=== PATIENT | female | born 1965 | race Caucasian/White ===

== ENCOUNTER 2017-11-24 13:02 | Emergency (ER) | payer OTHER ==
[2017-11-24] MEDS ORDERED: HYDROmorphONE/DILAUDID 1 MG/ML INJ IVP ONE (13:44)
[2017-11-24] MEDS ORDERED: NS 1,000 ML IV ONE (13:44)
[2017-11-24 14:04] LABS: PLATELET COUNT 310 10^3/uL (150-400)
[2017-11-24 14:15] VITALS: RESP 16
--- NOTE | 2017-11-24 14:51 | EDPHY ---
H & P Stated Complaint: fall off horse/groin pain r hand/finger inj Time Seen by Provider: 11/24/17 13:39 HPI/ROS: CHIEF COMPLAINT: Right groin and hand pain HISTORY OF PRESENT ILLNESS: The patient presents the ED with complaints of right groin hand pain after she fell off a horse earlier today. The patient denies headache, neck pain, chest pain or difficulty breathing. The patient denies any anticoagulant use. The patient denies any numbness or weakness. She reports moderate pain in his been unable to weightbear. REVIEW OF SYSTEMS: A comprehensive 10 point review of systems is otherwise negative aside from elements mentioned in the history of present illness. Source: Patient Exam Limitations: No limitations - Personal History LMP (Females 10-55): Post Menopausal Current Tetanus/Diphtheria Vaccine: No - Medical/Surgical History Hx Asthma: No Hx Chronic Respiratory Disease: No Hx Diabetes: No Hx Cardiac Disease: No Hx Renal Disease: No Hx Cirrhosis: No Hx Alcoholism: No Hx HIV/AIDS: No Hx Splenectomy or Spleen Trauma: No Other PMH: denies - Social History Smoking Status: Never smoked - Physical Exam Exam: General Appearance: Alert, no distress Head: Atraumatic Eyes: Pupils equal, round, reactive ENT, Mouth: No hemotympanum, no oral trauma Neck: Nontender, trachea midline Respiratory: No chest wall tender, subcutaneous air, lungs clear bilaterally Cardiovascular: Regular rate and rhythm Abdomen: Abdomen is soft and nontender, pelvis stable Skin: No lacerations, No abrasion Back: No midline T/L/S pain Extremities: Tenderness to palpation right inguinal area, tenderness to palpation right 4th finger distal phalanx without deformity Neurological: A&Ox3, normal motor function, normal sensory exam Constitutional: Initial Vital Signs Temperature (C) 36.5 C 11/24/17 13:16 Heart Rate 74 11/24/17 13:16 Respiratory Rate 18 11/24/17 13:16 Blood Pressure 123/87 H 11/24/17 13:16 O2 Sat (%) 98 11/24/17 13:16 O2 Delivery Mode Room Air Allergies/Adverse Reactions: No Known Allergies Allergy (Unverified 11/24/17 13:16) Home Medications: Medication Instructions Recorded NK [No Known Home Meds] 11/24/17 Medical Decision Making - Diagnostics Imaging Results: Imaging Impressions Hand X-Ray 11/24/17 13:44 Impression: Comminuted fracture of the distal phalanx. 2. AP Pelvis, 2 images History: Pain in right hip. Bucked off horse today. Findings: There is a slightly impacted fracture of the central aspect of the right superior pubic ramus/symphysis. The pubic symphysis is minimally malalignment. Hips and SI joints look normal. Impression: Right superior pubic ramus/pubic fractures. Pelvis X-Ray 11/24/17 13:44 Impression: Comminuted fracture of the distal phalanx. 2. AP Pelvis, 2 images History: Pain in right hip. Bucked off horse today. Findings: There is a slightly impacted fracture of the central aspect of the right superior pubic ramus/symphysis. The pubic symphysis is minimally malalignment. Hips and SI joints look normal. Impression: Right superior pubic ramus/pubic fractures. ED Course/Re-evaluation: The patient presents to the ED for evaluation of right hip in hand pain following a mechanical fall. The patient is noted to have a rami fracture on the right as well as a nondisplaced distal phalanx fracture. The patient arrives with a GCS of 15. I have cleared her cervical spine clinically. She is neurologically intact. The patient did have an IV established and received IV narcotic pain medication. I re-evaluated the patient at 3:00 p.m.: Her abdominal examination remains benign and she is neurologically intact. The patient has been informed of the nonsurgical nature of both her pelvic fracture and phalanx fracture. The patient will be given crutches and customary aftercare instructions. She is given the contact number of our on-call orthopedic surgeon. She is advised to be weight-bearing as tolerated. Differential Diagnosis: Differential diagnosis considered includes fracture, sprain, dislocation - Data Points Laboratory Results: Laboratory Results 11/24/17 13:55 11/24/17 13:55 11/24/17 11/24/17 13:55 13:55 WBC 11.28 10^3/uL H 10^3/uL (3.80-9.50) RBC 4.81 10^6/uL 10^6/uL (4.18-5.33) Hgb 14.6 g/dL g/dL (12.6-16.3) Hct 41.9 % % (38.0-47.0) MCV 87.1 fL fL (81.5-99.8) MCH 30.4 pg pg (27.9-34.1) MCHC 34.8 g/dL g/dL (32.4-36.7) RDW 11.7 % % (11.5-15.2) Plt Count 310 10^3/uL 10^3/uL (150-400) MPV 9.8 fL fL (8.7-11.7) Neut % (Auto) 80.2 % H % (39.3-74.2) Lymph % (Auto) 12.1 % L % (15.0-45.0) [place] % (Auto) 6.1 % % (4.5-13.0) Eos % (Auto) 0.4 % L % (0.6-7.6) Baso % (Auto) 0.5 % % (0.3-1.7) Nucleat RBC Rel Count 0.0 % % (0.0-0.2) Absolute Neuts (auto) 9.03 10^3/uL H 10^3/uL (1.70-6.50) Absolute Lymphs (auto) 1.37 10^3/uL 10^3/uL (1.00-3.00) Absolute Monos (auto) 0.69 10^3/uL 10^3/uL (0.30-0.80) Absolute Eos (auto) 0.05 10^3/uL 10^3/uL (0.03-0.40) Absolute Basos (auto) 0.06 10^3/uL 10^3/uL (0.02-0.10) Absolute Nucleated RBC 0.00 10^3/uL 10^3/uL (0-0.01) Immature Gran % 0.7 % % (0.0-1.1) Immature Gran # 0.08 10^3/uL 10^3/uL (0.00-0.10) Sodium 140 mEq/L mEq/L (135-145) Potassium 4.0 mEq/L mEq/L (3.5-5.2) Chloride 104 mEq/L mEq/L (97-110) Carbon Dioxide 22 mEq/l mEq/l (22-31) Anion Gap 14 mEq/L mEq/L (8-16) BUN 16 mg/dL mg/dL (7-23) Creatinine 0.9 mg/dL mg/dL (0.6-1.0) Estimated GFR > 60 Glucose 97 mg/dL mg/dL (70-100) Calcium 10.0 mg/dL mg/dL (8.5-10.4) Medications Given: Discontinued Medications Hydromorphone HCl (Dilaudid) 0.5 mg IVP EDNOW ONE Stop: 11/24/17 13:45 Last Admin: 11/24/17 14:00 Dose: 0.5 mg Sodium Chloride (Ns) 1,000 mls @ 0 mls/hr IV EDNOW ONE; Wide Open PRN Reason: Protocol Stop: 11/24/17 13:45 Last Admin: 11/24/17 14:01 Dose: 1,000 mls Departure - Departure Disposition: Home, Routine, Self-Care Clinical Impression: Fracture of right superior pubic ramus Qualifiers: Encounter type: initial encounter Fracture type: closed Qualified Code(s): S32.511A - Fracture of superior rim of right pubis, initial encounter for closed fracture Phalanx, distal fracture of finger Qualifiers: Encounter type: initial encounter Finger: ring finger Fracture type: closed Fracture alignment: nondisplaced Laterality: right Qualified Code(s): S62.664A - Nondisplaced fracture of distal phalanx of right ring finger, initial encounter for closed fracture Condition: Good Instructions: Pelvic Fracture (ED) Additional Instructions: 1. Tylenol and ibuprofen as needed for pain. 2. Oxycodone as needed for severe pain. 3. Please contact the orthopedic surgeon you have been referred to for a follow -up appointment regarding your fractures. Your fractures are nonsurgical in should heal without complication. Referrals: GHAZAL MARTINEZ [Primary Care Provider] - As per Instructions
[2017-11-24 15:31] VITALS: BP 111/87; PULSE 70; TEMP 98.2; O2SAT 95
== END 2017-11-24 15:31 | disposition home or self-care (01) ==
DX: S62.664A Nondisplaced fracture of distal phalanx of right ring finger, initial encounter for closed fracture (principal); S32.511A Fracture of superior rim of right pubis, initial encounter for closed fracture; V80.010A Animal-rider injured by fall from or being thrown from horse in noncollision accident, initial encounter; Y99.8 Other external cause status; Y93.52 Activity, horseback riding
CPT/HCPCS: 96374; J1170

== ENCOUNTER → 2018-03-02 | Outpatient (CLI) | payer OTHER | LOC: FIMAGING 14:05 | PROVIDERS: ATTEND Nurse Practitioner Family | DX: Z12.31 Encounter for screening mammogram for malignant neoplasm of breast (principal) ==